=== PATIENT | male | born 1985 | race Caucasian/White ===

== ENCOUNTER 2023-06-15 15:44 | Outpatient (CLI) | payer BC, SELFPAY | END 2023-06-15 15:45 | disposition home or self-care (01) | LOC: NFLDUCREF 15:45 | PROVIDERS: PCP Family Medicine; Visit Provider Physician Assistant | DX: Z11.9 Encounter for screening for infectious and parasitic diseases, unspecified (principal); W57.XXXA Bitten or stung by nonvenomous insect and other nonvenomous arthropods, initial encounter | CPT/HCPCS: 86618 ==